=== PATIENT | female | born 1965 | race Caucasian/White ===

== ENCOUNTER 2017-01-16 22:51 | Emergency (ER) | payer OTHER ==
[~2017-01-16] VITALS: Ht 172.7 cm; Wt 108.0 kg
[2017-01-16 22:53] VITALS: BP 84/52; PULSE 91; RESP 22; O2SAT 98
--- NOTE | 2017-01-16 23:09 | ED.REPORT ---
HPI-Allergic Reaction Date of Service Jan 16, 2017 ED Provider: Aaron Gamez MD A 51 year old female presents to the ED complaining of difficulty breathing onset one hour ago after she ate seafood [place] with crab and shrimp. Associated symptoms include itching in hands and arms, lightheadedness, and tingling sensation in mouth. She denies any history of seafood allergies. Nursing Notes Stated Complaint: ALLERGIC REACTION Chief Complaint: Allergic Reaction Nursing Notes Reviewed: Yes Allergies: Coded Allergies: Penicillins (Verified Adverse Reaction, Severe, 08/07/09) Scheduled Prednisone (PredniSONE) 20 Mg Tablet 20 MG PO TID Scheduled PRN Epinephrine (Epipen 2-Dmitriy) 0.3 Mg/0.3 Ml Auto.injct 0.3 MG IJ DIRECTED PRN PRN For Anaphyllaxis General Time Seen by MD: 23:06 Chief Complaint Difficulty breathing Hx Obtained From: Patient Arrived By: Walk-in Onset Occurred: 1 - 4 hours ago Symptom Duration: Since onset Progression Since Onset: Unchanged Severity: Current: Moderate Severity: Maximum: Moderate Recent Healthcare: No recent doctor visit Similar Sx Previous: No Past Medical History Past Medical History Denies histroy of seafood allergies. Past Surgical History none reported. Family History Sister developed shrimp allergy a few months ago. Review of Systems Review of Systems Note: Difficulty breathing. Tingling sensation in mouth. Constitutional: Denies: Chills, Fever Skin: Reports Itching, Reports Rash Neurologic: Reports: Lightheaded Complete sys rev & neg: except as marked. Physical Exam Initial Vital Signs Vital Signs (First) Date Time Temp Pulse Resp B/P Pulse Ox O2 Delivery O2 Flow Rate FiO2 01/16/17 22:53 36.2 91 22 84/52 98 Room Air 01/16/17 23:15 2 Initial VS: Reviewed, Vital signs abnormal General/Constitutional: Awake, Alert Appearance / Presentation: Positive: Pale Respiratory / Chest: Breath sounds NL, No wheezing Moves air well. Cardiovascular: Heart rate NL Not tachycardic. Mildly hypertensive. Skin: Warm Patient has hives on forearms. She is diaphoretic. Head / Eyes: Atraumatic, Normocephalic, PERRL, EOMI She has a little bit of tongue swelling but no pharyngeal swelling. Abdomen: No guarding, No rebound Neurologic: Oriented X3, Speech NL Upper Extremity / MS: Atraumatic, No edema Re-Eval/Medical Decision Med Decision/Clinical Course 51-year-old female with an apparent anaphylaxis to crab and shrimp. She was initially hypotensive and had mild airway compromise. She was treated aggressively with fluids, IM epinephrine, IV Benadryl, IV Solu-Medrol, inhaled racemic epinephrine, and DuoNeb. She responded gradually but completely. She was observed for approximately 3 hours with ever improving symptoms and discharged home on the prednisone and Benadryl in good condition. Source of Hx: Old records Re-Evaluation/Progress #1: Time of Eval: 23:11 Re-Evaluation/Progress Note: Rechecked patient. Re-Evaluation/Progress #2: Time of Eval: 23:15 Re-Evaluation/Progress Note: Rechecked patient who still has expitory wheezing. 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 She reports that she does not have a uvula. Re-Evaluation/Progress #3: Time of Eval: 23:53 Re-Evaluation/Progress Note: Rechecked patient. Re-Evaluation/Progress #4: Time of Eval: 23:53 Re-Evaluation/Progress Note: Rechecked patient. Her color has improved, she is hypertensive, and is mildly tachycardic from treatment. No airway compromise. Re-Evaluation/Progress #5: Time of Eval: 01:36 Re-Evaluation/Progress Note: Rechecked patient. She reports that the seafood [place] had crab and shrimp in it. Explained diagnosis and plan for discharge. Patient understands and agrees with the plan. All questions addressed. Counseled Regarding: Diagnosis, Need for follow-up, When/why to return to ED Discharge & Departure Primary Impression: Anaphylaxis Encounter type: initial encounter Qualified Code: T78.2XXA - Anaphylactic shock, unspecified, initial encounter Disposition: Home Discharge Condition All VS Reviewed: Yes Condition: Improved Patient Instructions: Anaphylaxis (DC) Additional Instructions: It appears that you reacted to shrimp or crab. You were treated with injected epinephrine, inhaled epinephrine, DuoNeb nebulizer treatment, Solu-Medrol, Benadryl and fluids. Continue the Benadryl (diphenhydramine) 25 mg to 50 mg 3 times a day as needed for rash and swelling. Prednisone 20 mg by mouth 3 times a day, #15 prescribed. EpiPen prescribed. Referrals: Heather Casas MD (PCP) Ethel Castillo MD Crit Care Except Billable Proc Time Spent: 30-74 minutes Services Performed: Patient management by me, Time spent at bedside, Reviewing test results, Reviewing imaging, Discussing patient care, Documentation in record, Time with fam/surrogate Critical Care Notes: Anaphylaxis treated aggressively with multiple management strategies. Scribe Attestation Portions of this note were transcribed by Jem Wagoner. I, Dr. Gamez personally performed the history, physical exam and medical decision-making; I reviewed and confirmed the accuracy of the information in the transcribed note. Signed by: Kaila Mcdonough, 01/17/2017 and 0223. copies to: Ethel Castillo MD; Heather Casas MD, Howard L MD Jan 16, 2017 23:09 Jem Wagoner Jan 16, 2017 23:11
[2017-01-16] MEDS ORDERED: 0.9% Sodium Chloride 1,000 ML IV ONE (23:10)
[2017-01-16] MEDS ORDERED: MethylprednisoLONE Sodium Succinate 62.5 mg/mL 2 mL Inj IVPUSH ONE (23:10)
[2017-01-16 23:15] VITALS: BP 122/66; PULSE 75; RESP 20; O2SAT 97
[2017-01-16] MEDS ORDERED: Albuterol-Ipratropium 3 mL Inhalation Solution NEB ONE (23:20)
[2017-01-16] MEDS ORDERED: Epinephrine Racemic 2.25% 0.5 mL Inhalation Solution NEB ONE (23:20)
[2017-01-16 23:26] VITALS: PULSE 65; RESP 20; O2SAT 99
[2017-01-16 23:58] VITALS: BP 157/66; PULSE 113; RESP 22; O2SAT 94
[2017-01-17] MEDS ORDERED: 0.9% Sodium Chloride 1,000 ML IV ONE (00:35)
[2017-01-17 01:15] VITALS: BP 141/65; PULSE 99; RESP 16; O2SAT 95
[2017-01-17] MEDS ORDERED: PRE20 PO (01:50)
[2017-01-17] MEDS ORDERED: EPIN0.3P2 IJ (01:50)
== END 2017-01-17 01:56 | disposition home or self-care (01) ==
LOC: SED 22:55
DX: R06.89 Other abnormalities of breathing (principal); T78.2XXA Anaphylactic shock, unspecified, initial encounter; Z88.0 Allergy status to penicillin
CPT/HCPCS: 94640; 94664; 96361; 96372; 96374; 96375; 99291; J0171; J1200; J2930; J7030; J7620